=== PATIENT | female | born 1970 | race Caucasian/White ===

== ENCOUNTER 2016-11-06 19:18 | Emergency (ER) | payer OTHER ==
[~2016-11-06] VITALS: Ht 165.1 cm; Wt 133.8 kg
[~2016-11-06 19:18] MED LIST: CEPH-38 PO; COLD MEDICINE; METF-380; TYLENOL
--- NOTE | 2016-11-06 19:54 | ED Cough/URI ---
General Chief Complaint: Cough/Cold/Flu Symptoms Stated Complaint: POSSIBLY DEHYDRATED Nursing Triage Note: PATIENT REPORTS COUGH AND FEVER FOR 2 WEEKS, REPORTS WAS EVALUATED BY PCP THEN AND DIAGNOSED WITH THE FLU BUT DECLINED TAMIFLU. PATIENT REPORTS COUGH CONTINUES AND COUGHS SO HARD SHE VOMITS Source: patient, other Exam Limitations: no limitations History of Present Illness Time seen by provider: 19:48 Initial Comments Patient comes ER by private conveyance with chief complaint that her influenza from a week ago is still here and she is feeling congestion in the middle of her chest and has a productive cough. She was diagnosed in the clinic with influenza and offered Tamiflu but she did not get because of the cost. The patient is been using mrfs-yjz-[id number] Tylenol cough and cold medicine which has marginal relief benefit. She has no significant medical history other than some psoriasis. She is not on any other medications other than btky-zxr-kfnkrml when necessary's. She has had no fevers but she has gotten nauseated because of the coughing and having the vomit a couple times while at work however she was not able to vomit anything up. She says a couple times her cough sputum had some red blood tinge to it. She has no diarrhea or new rash. Allergies and Home Medications Allergies Coded Allergies: No Known Allergies (Unverified Allergy, Mild, 07/17/08) Home Medications Guaifenesin 100 Mg/5 Ml Liquid, 100 MG PO Q8H PRN for COUGH, #100 Ref 0 Prescribed by: VALENTIN JORDAN on 11/06/162002 Ondansetron 4 Mg Tab.rapdis, 4 MG PO Q4H PRN for NAUSEA/VOMITING-1ST LINE, #10 Ref 0 Prescribed by: VALENTIN JORDAN on 11/06/162002 Constitutional: chills, No diaphoresis, No fever, No malaise EENTM: No ear discharge, No ear pain Respiratory: see HPI, cough, phlegm, No short of breath, No wheezing Cardiovascular: No chest pain, No palpitations Gastrointestinal: No abdominal pain, No constipation, No diarrhea, No nausea Genitourinary: No discharge, No dysuria Musculoskeletal: No back pain, No joint pain Skin: No pruritus, No rash, other (chronic psoriatic plaques) Psychiatric/Neurological: Denies Headache, Denies Numbness, Denies Paresthesia Past Qghaegu-Agedqs-Stoqim Hx Patient Social History Alcohol Use: Denies Use Recreational Drug Use: No Smoking Status: Never a Smoker Recent Foreign Travel: No Contact w/Someone Who Travel: No Recent Infectious Disease Expo: No Physical Abuse: No Sexual Abuse: No Surgeries History of Surgeries: Yes (HERNIA) Surgeries: Cardiac, Tonsillectomy, Tubal Ligation Respiratory History of Respiratory Disorde: No Cardiovascular History of Cardiac Disorders: No Neurological History of Neurological Disord: No Genitourinary History of Genitourinary Disor: No Gastrointestinal History of Gastrointestinal Di: No Musculoskeletal History of Musculoskeletal Dis: No Endocrine History of Endocrine Disorders: No HEENT History of HEENT Disorders: No Cancer History of Cancer: No Psychosocial History of Psychiatric Problem: No Suicide Risk Score: 0 Integumentary History of Skin or Integumenta: No Blood Transfusions History of Blood Disorders: No Physical Exam Vital Signs Vital Sign - Last 12Hours 11/06/16 19:26 Temp 98.2 Pulse 102 Resp 18 Pulse Ox 95 O2 Delivery Room Air Capillary Refill : Less Than 3 Seconds General Appearance: WD/WN, no apparent distress Eyes: Bilateral Eye Normal Inspection, Bilateral Eye PERRL, Bilateral Eye EOMI HEENT: PERRL/EOMI, normal ENT inspection, TMs normal, pharynx normal, other ( moist mucous membranes) Neck: non-tender, full range of motion, supple, normal inspection Respiratory: chest non-tender, lungs clear, normal breath sounds, no respiratory distress Cardiovascular: normal peripheral pulses, regular rate, rhythm Gastrointestinal: normal bowel sounds, non tender, soft Extremities: non-tender, normal inspection, normal capillary refill Neurologic/Psychiatric: alert, oriented x 3 Skin: normal color, warm/dry Progress/Results/Core Measures Results/Orders My Orders Orders - VALENTIN JRODAN Chest Pa/Lat (2 View) (11/06/16 19:48) Rx-Ondansetron Po (Rx-Zofran Po) (11/06/16 20:04) Vital Signs/I&O Vital Sign - Last 12Hours 11/06/16 19:26 Temp 98.2 Pulse 102 Resp 18 B/P (MAP) Pulse Ox 95 O2 Delivery Room Air Diagnostic Imaging Diagonstic Imaging: Xray Plain Films/CT/US/NM/MRI: chest Comments No acute infiltrates. NAME: EMI PAYAN [facility] REC#: [id number] PHYSICIAN: VALENTIN JORDAN MD CC: ARIE MCGOVERN MD; VALENTIN JORDAN Page 1 of 1 RADIOLOGY REPORT VIA [facility], [facility]. [place], [place] CC: ARIE MCGOVERN MD; VALENTIN JORDAN Page 1 of 1 RADIOLOGY REPORT NAME: EMI PAYAN [facility] REC#: [id number] PT STATUS: REG ER : 1970 PHYSICIAN: VALENTIN JORDAN MD ADMIT DATE: 11/06/16/ER Signed Date of Exam: 11/06/16 CHEST PA/LAT (2 VIEW) INDICATION: 46-year-old female with flulike symptoms. COMPARISON: None. EXAMINATION: PA and lateral films of the chest were obtained. FINDINGS: The cardiac contour is normal. There is slight prominence of the central lung markings with some peribronchial cuffing. A few perihilar and bibasilar atelectatic infiltrates are seen but no significant consolidations. There is no effusion or pneumothorax. Soft tissues and bony thorax are normal. IMPRESSION: Central reactive airway changes such as bronchitis with superimposed perihilar and bibasilar atelectatic infiltrates but no significant consolidations. Dictated by: Dictated on workstation # [id number] Dict: 11/06/162005 Trans: 11/06/162013 Interpreted by: ARIE MCGOVERN MD Electronically signed by: ARIE MCGOVERN MD 11/06/162013 Reviewed: Reviewed by Ny Departure Impression Impression: Primary Impression: Influenza Disposition: 01 HOME, SELF-CARE Condition: Stable Departure-Patient Inst. Referrals: [facility] (PCP/Family) Primary Care Physician Patient Instructions: Flu, Adult (DC) Add. Discharge Instructions: Drink copious amounts of fluids and use Zofran under the tongue one tablet every 4 hours as needed for nausea or vomiting. Use the cough medicine as needed every 8 hours to control your cough especially before going to bed. All discharge instructions reviewed with patient and/or family. Voiced understanding. Scripts Ondansetron (Zofran Odt) 4 Mg Tab.rapdis 4 MG PO Q4H Y for NAUSEA/VOMITING-1ST LINE, #10 TAB 0 Refills Prov: VALENTIN JORDAN 11/06/16 Guaifenesin (Guaifenesin) 100 Mg/5 Ml Liquid 100 MG PO Q8H Y for COUGH, #100 ML 0 Refills Prov: VALENTIN JORDAN 11/06/16 Work/School Note: Work Release Form Date Seen in the Emergency Department: Nov 06, 2016 Return to Work: Nov 09, 2016 Restrictions: No Restrictions Copy Copies To 1: FRANCESCA ARREGUIN TITUS J Nov 06, 2016 19:54
[2016-11-06] MEDS ORDERED: GUAI100L13 PO (20:03)
[2016-11-06] MEDS ORDERED: ONDA4TAB8 PO (20:03)
[2016-11-06] MEDS ORDERED: RX-ONDANSETRON 4 MG ODT (ZOFRAN) PPK #4 PO STA (20:04)
--- NOTE | 2016-11-06 20:11 | Diagnostic Imaging Report ---
INDICATION: 46-year-old female with flulike symptoms. COMPARISON: None. EXAMINATION: PA and lateral films of the chest were obtained. FINDINGS: The cardiac contour is normal. There is slight prominence of the central lung markings with some peribronchial cuffing. A few perihilar and bibasilar atelectatic infiltrates are seen but no significant consolidations. There is no effusion or pneumothorax. Soft tissues and bony thorax are normal. IMPRESSION: Central reactive airway changes such as bronchitis with superimposed perihilar and bibasilar atelectatic infiltrates but no significant consolidations. Dictated by: Dictated on workstation # [id number]
[2016-11-06 20:34] VITALS: BP 155/98
== END 2016-11-06 20:33 | disposition home or self-care (01) ==
LOC: EDUNIT# 19:18 → ER 19:20
DX: J11.1 Influenza due to unidentified influenza virus with other respiratory manifestations (principal); Z98.51 Tubal ligation status; Z90.89 Acquired absence of other organs
CPT/HCPCS: 71020; 99283

== ENCOUNTER 2016-11-15 19:20 | Emergency (ER) | payer SELFPAY ==
[~2016-11-15] VITALS: Ht 165.1 cm; Wt 136.1 kg
[~2016-11-15 19:20] MED LIST changes: +GUAI100L13 PO; +ONDA4TAB8 PO
--- OUTSIDE RECORDS SUMMARY | 2016-11-15 19:27 | XMS REPORT | Continuity of Care Document ---
Author Author Formerly [facility], [facility] Address Unknown Phone Unavailable Allergies Active Description Code Type Severity Reaction Onset Reported/Identified Relationship to Patient Clinical Status Yes NKANo Known Allergies NKA Miscellaneous Allergy Mild N/A 07/17/2008 Medications Problems Date Dx Coded Attending Type Code Diagnosis Diagnosed By 08/29/2007 NEFTALY ISSA MD 110.5 TINEA CORPORIS 08/29/2007 110.5 TINEA CORPORIS 08/29/2007 110.5 TINEA CORPORIS 08/29/2007 110.5 TINEA CORPORIS 08/29/2007 110.5 TINEA CORPORIS 08/29/2007 110.5 TINEA CORPORIS 08/29/2007 110.5 TINEA CORPORIS 08/29/2007 ARREGUIN DO FRANCESCA K 110.5 TINEA CORPORIS 08/29/2007 ARREGUIN DO, FRANCESCA K 110.5 TINEA CORPORIS 08/29/2007 ARREGUIN DO, FRANCESCA K 110.5 TINEA CORPORIS 08/29/2007 ARREGUIN DO, FRANCESCA K 110.5 TINEA CORPORIS 08/29/2007 KIN ATKINS APRN 110.5 TINEA CORPORIS 08/29/2007 ARREGUIN DO, FRANCESCA K 110.5 TINEA CORPORIS 08/29/2007 ARREGUIN DO FRANCESCA K 110.5 TINEA CORPORIS 08/29/2007 ARREGUIN DO FRANCESCA K 110.5 TINEA CORPORIS 01/30/2008 NEFTLAY ISSA MD 079.99 VIRAL SYNDROME 01/30/2008 NEFTALY ISSA MD 250.02 DIABETES MELLITUS POORLY CONTROLLED 01/30/2008 NEFTALY ISSA MD 787.01 NAUSEA WITH VOMITING 01/30/2008 079.99 VIRAL SYNDROME 01/30/2008 250.02 DIABETES MELLITUS POORLY CONTROLLED 01/30/2008 787.01 NAUSEA WITH VOMITING 01/30/2008 079.99 VIRAL SYNDROME 01/30/2008 250.02 DIABETES MELLITUS POORLY CONTROLLED 01/30/2008 787.01 NAUSEA WITH VOMITING 01/30/2008 079.99 VIRAL SYNDROME 01/30/2008 250.02 DIABETES MELLITUS POORLY CONTROLLED 01/30/2008 787.01 NAUSEA WITH VOMITING 01/30/2008 079.99 VIRAL SYNDROME 01/30/2008 250.02 DIABETES MELLITUS POORLY CONTROLLED 01/30/2008 787.01 NAUSEA WITH VOMITING 01/30/2008 079.99 VIRAL SYNDROME 01/30/2008 250.02 DIABETES MELLITUS POORLY CONTROLLED 01/30/2008 787.01 NAUSEA WITH VOMITING 01/30/2008 079.99 VIRAL SYNDROME 01/30/2008 250.02 DIABETES MELLITUS POORLY CONTROLLED 01/30/2008 787.01 NAUSEA WITH VOMITING 01/30/2008 ARREGUIN DO, FRANCESCA K 079.99 VIRAL SYNDROME 01/30/2008 ARREGUIN DO, FRANCESCA K 250.02 DIABETES MELLITUS POORLY CONTROLLED 01/30/2008 ARREGUIN DO, FRANCESCA K 787.01 NAUSEA WITH VOMITING 01/30/2008 ARREGUIN DO, FRANCESCA K 079.99 VIRAL SYNDROME 01/30/2008 ARREGUIN DO, FARNCESCA K 250.02 DIABETES MELLITUS POORLY CONTROLLED 01/30/2008 ARREGUIN DO FRANCESCA K 787.01 NAUSEA WITH VOMITING 01/30/2008 ARREGUIN DO, FRANCESCA K 079.99 VIRAL SYNDROME 01/30/2008 ARREGUIN DO, FRANCESCA K 250.02 DIABETES MELLITUS POORLY CONTROLLED 01/30/2008 ARREGUIN DO, FRANCESCA K 787.01 NAUSEA WITH VOMITING 01/30/2008 ARREGUIN DO, FRANCESCA K 079.99 VIRAL SYNDROME 01/30/2008 ARREGUIN DO, FRANCESCA K 250.02 DIABETES MELLITUS POORLY CONTROLLED 01/30/2008 ARREGUIN DO FRANCESCA K 787.01 NAUSEA WITH VOMITING 01/30/2008 KIN ATKINS APRN E 079.99 VIRAL SYNDROME 01/30/2008 IVAN ATKINS APRNSIE E 250.02 DIABETES MELLITUS POORLY CONTROLLED 01/30/2008 VICKYLNOAH KAUR KIN E 787.01 NAUSEA WITH VOMITING 01/30/2008 ARREGUIN DO FRANCESCA K 079.99 VIRAL SYNDROME 01/30/2008 ARREGUIN DO, FRANCESCA K 250.02 DIABETES MELLITUS POORLY CONTROLLED 01/30/2008 ARREGUIN DO, FRANCESCA K 787.01 NAUSEA WITH VOMITING 01/30/2008 ARREGUIN DO FRANCESCA K 079.99 VIRAL SYNDROME 01/30/2008 ARREGUIN DO FRANCESCA K 250.02 DIABETES MELLITUS POORLY CONTROLLED 01/30/2008 ARREGUIN DO, FRANCESCA K 787.01 NAUSEA WITH VOMITING 01/30/2008 KALLIE GONZALEZ FRANCESCA K 079.99 VIRAL SYNDROME 01/30/2008 KALLIE GONZALEZ FRANCESCA K 250.02 DIABETES MELLITUS POORLY CONTROLLED 01/30/2008 KALLIE GONZALEZ FRANCESCA K 787.01 NAUSEA WITH VOMITING 10/21/2008 NEFTALY ISSA MD 250.00 DIABETES MELLITUS 10/21/2008 NEFTALY ISSA MD 278.00 OBESITY UNSPECIFIED 10/21/2008 NEFTALY ISSA MD 300.4 DYSTHYMIC DISORDER 10/21/2008 NEFTALY ISSA MD 780.52 insomnia 10/21/2008 250.00 DIABETES MELLITUS 10/21/2008 278.00 OBESITY UNSPECIFIED 10/21/2008 300.4 DYSTHYMIC DISORDER 10/21/2008 780.52 insomnia 10/21/2008 250.00 DIABETES MELLITUS 10/21/2008 278.00 OBESITY UNSPECIFIED 10/21/2008 300.4 DYSTHYMIC DISORDER 10/21/2008 780.52 insomnia 10/21/2008 250.00 DIABETES MELLITUS 10/21/2008 278.00 OBESITY UNSPECIFIED 10/21/2008 300.4 DYSTHYMIC DISORDER 10/21/2008 780.52 insomnia 10/21/2008 250.00 DIABETES MELLITUS 10/21/2008 278.00 OBESITY UNSPECIFIED 10/21/2008 300.4 DYSTHYMIC DISORDER 10/21/2008 780.52 insomnia 10/21/2008 250.00 DIABETES MELLITUS 10/21/2008 278.00 OBESITY UNSPECIFIED 10/21/2008 300.4 DYSTHYMIC DISORDER 10/21/2008 780.52 insomnia 10/21/2008 250.00 DIABETES MELLITUS 10/21/2008 278.00 OBESITY UNSPECIFIED 10/21/2008 300.4 DYSTHYMIC DISORDER 10/21/2008 780.52 insomnia 10/21/2008 ARREGUIN DO, FRANCESCA K 250.00 DIABETES MELLITUS 10/21/2008 ARREGUIN DO FRANCESCA K 278.00 OBESITY UNSPECIFIED 10/21/2008 ARREGUIN DO FRANCESCA K 300.4 DYSTHYMIC DISORDER 10/21/2008 ARREGUIN DO, FRANCESCA K 780.52 insomnia 10/21/2008 KALLIE GONZALEZ FRANCESCA K 250.00 DIABETES MELLITUS 10/21/2008 AKLLIE GONZALEZ FRANCESCA K 278.00 OBESITY UNSPECIFIED 10/21/2008 ARREGUIN DO FRANCESCA K 300.4 DYSTHYMIC DISORDER 10/21/2008 ARREGUIN DO, FRANCESCA K 780.52 insomnia 10/21/2008 ARREGUIN DO, FRANCESCA K 250.00 DIABETES MELLITUS 10/21/2008 ARREGUIN DO, FRANCESCA K 278.00 OBESITY UNSPECIFIED 10/21/2008 ARREGUIN DO, FRANCESCA K 300.4 DYSTHYMIC DISORDER 10/21/2008 ARREGUIN DO, FRANCESCA K 780.52 insomnia 10/21/2008 ARREGUIN DO, FRANCESCA K 250.00 DIABETES MELLITUS 10/21/2008 ARREGUIN DO, FRANCESCA K 278.00 OBESITY UNSPECIFIED 10/21/2008 ARREGUIN DO, FRANCESCA K 300.4 DYSTHYMIC DISORDER 10/21/2008 ARREGUIN DO, FRANCESCA K 780.52 insomnia 10/21/2008 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 KIN E 250.00 DIABETES MELLITUS 10/21/2008 [facility] KIN E 278.00 OBESITY UNSPECIFIED 10/21/2008 [facility] KIN E 300.4 DYSTHYMIC DISORDER 10/21/2008 VICKYNOAH [employer]IE[employer], KIN E 780.52 insomnia 10/21/2008 ARREGUIN DO, FRANCESCA K 250.00 DIABETES MELLITUS 10/21/2008 ARREGUIN DO, FRANCESCA K 278.00 OBESITY UNSPECIFIED 10/21/2008 ARREGUIN DO, FRANCESCA K 300.4 DYSTHYMIC DISORDER 10/21/2008 ARREGUIN DO, FRANCESCA K 780.52 insomnia 10/21/2008 ARREGUIN DO, FRANCESCA K 250.00 DIABETES MELLITUS 10/21/2008 ARREGUIN DO, FRANCESCA K 278.00 OBESITY UNSPECIFIED 10/21/2008 ARREGUIN DO, FRANCESCA K 300.4 DYSTHYMIC DISORDER 10/21/2008 ARREGUIN DO, FRANCESCA K 780.52 insomnia 10/21/2008 ARREGUIN DO, FRANCESCA K 250.00 DIABETES MELLITUS 10/21/2008 ARREGUIN DO, FRANCESCA K 278.00 OBESITY UNSPECIFIED 10/21/2008 ARREGUIN DO, FRANCESCA K 300.4 DYSTHYMIC DISORDER 10/21/2008 ARREGUIN DO, FRANCESCA K 780.52 insomnia 11/04/2008 MAEGAN PIMENTEL, NEFTALY V72.31 RECOVERY COORDINATOR EXAM, ROUTINE 11/04/2008 V72.31 RECOVERY COORDINATOR EXAM, ROUTINE 11/04/2008 V72.31 RECOVERY COORDINATOR EXAM, ROUTINE 11/04/2008 V72.31 RECOVERY COORDINATOR EXAM, ROUTINE 11/04/2008 V72.31 RECOVERY COORDINATOR EXAM, ROUTINE 11/04/2008 V72.31 RECOVERY COORDINATOR EXAM, ROUTINE 11/04/2008 V72.31 RECOVERY COORDINATOR EXAM, ROUTINE 11/04/2008 ARREGUIN DO, FRANCESCA K V72.31 RECOVERY COORDINATOR EXAM, ROUTINE 11/04/2008 ARREGUIN DO, FRANCESCA K V72.31 RECOVERY COORDINATOR EXAM, ROUTINE 11/04/2008 ARREGUIN DO, FRANCESCA K V72.31 RECOVERY COORDINATOR EXAM, ROUTINE 11/04/2008 ARREGUIN DO FRANCESCA K V72.31 RECOVERY COORDINATOR EXAM, ROUTINE 11/04/2008 KIN ATKINS APRN V72.31 RECOVERY COORDINATOR EXAM, ROUTINE 11/04/2008 ARREGUIN DO, FRANCESCA K V72.31 RECOVERY COORDINATOR EXAM, ROUTINE 11/04/2008 ARREGUIN DO, FRANCESCA K V72.31 RECOVERY COORDINATOR EXAM, ROUTINE 11/04/2008 ARREGUIN DO, FRANCESCA K V72.31 RECOVERY COORDINATOR EXAM, ROUTINE 09/09/2009 NEFTALY ISSA MD 272.4 HYPERLIPIDEMIA UNSPECIFIED 09/09/2009 NEFTALY ISSA MD 382.00 OTITIS MEDIA ACUTE WITHOUT SPONTANEOUS RUPTURE EARDRUM 09/09/2009 NEFTALY ISSA MD 388.70 EAR ACHE 09/09/2009 272.4 HYPERLIPIDEMIA UNSPECIFIED 09/09/2009 382.00 OTITIS MEDIA ACUTE WITHOUT SPONTANEOUS RUPTURE EARDRUM 09/09/2009 388.70 EAR ACHE 09/09/2009 272.4 HYPERLIPIDEMIA UNSPECIFIED 09/09/2009 382.00 OTITIS MEDIA ACUTE WITHOUT SPONTANEOUS RUPTURE EARDRUM 09/09/2009 388.70 EAR ACHE 09/09/2009 272.4 HYPERLIPIDEMIA UNSPECIFIED 09/09/2009 382.00 OTITIS MEDIA ACUTE WITHOUT SPONTANEOUS RUPTURE EARDRUM 09/09/2009 388.70 EAR ACHE 09/09/2009 272.4 HYPERLIPIDEMIA UNSPECIFIED 09/09/2009 382.00 OTITIS MEDIA ACUTE WITHOUT SPONTANEOUS RUPTURE EARDRUM 09/09/2009 388.70 EAR ACHE 09/09/2009 272.4 HYPERLIPIDEMIA UNSPECIFIED 09/09/2009 382.00 OTITIS MEDIA ACUTE WITHOUT SPONTANEOUS RUPTURE EARDRUM 09/09/2009 388.70 EAR ACHE 09/09/2009 272.4 HYPERLIPIDEMIA UNSPECIFIED 09/09/2009 382.00 OTITIS MEDIA ACUTE WITHOUT SPONTANEOUS RUPTURE EARDRUM 09/09/2009 388.70 EAR ACHE 09/09/2009 FRANCESCA ARREGUIN DO K 272.4 HYPERLIPIDEMIA UNSPECIFIED 09/09/2009 FRANCESCA ARREGUIN DO 382.00 OTITIS MEDIA ACUTE WITHOUT SPONTANEOUS RUPTURE EARDRUM 09/09/2009 ARREGUIN DO, FRANCESCA K 388.70 EAR ACHE 09/09/2009 ARREGUIN DO, FRANCESCA K 272.4 HYPERLIPIDEMIA UNSPECIFIED 09/09/2009 ARREGUIN DO, FRANCESCA K 382.00 OTITIS MEDIA ACUTE WITHOUT SPONTANEOUS RUPTURE EARDRUM 09/09/2009 ARREGUIN DO, FRANCESCA K 388.70 EAR ACHE 09/09/2009 ARREGUIN DO, FRANCESCA K 272.4 HYPERLIPIDEMIA UNSPECIFIED 09/09/2009 ARREGUIN DO, FRANCESCA K 382.00 OTITIS MEDIA ACUTE WITHOUT SPONTANEOUS RUPTURE EARDRUM 09/09/2009 ARREGUIN DO, FRANCESCA K 388.70 EAR ACHE 09/09/2009 ARREGUIN DO, FRANCESCA K 272.4 HYPERLIPIDEMIA UNSPECIFIED 09/09/2009 ARREGUIN DO, FRANCESCA K 382.00 OTITIS MEDIA ACUTE WITHOUT SPONTANEOUS RUPTURE EARDRUM 09/09/2009 ARREGUIN DO, FRANCESCA K 388.70 EAR ACHE 09/09/2009 [employer] KIN E 272.4 HYPERLIPIDEMIA UNSPECIFIED 09/09/2009 [facility] KIN E 382.00 OTITIS MEDIA ACUTE WITHOUT SPONTANEOUS RUPTURE EARDRUM 09/09/2009 [employer] KIN E 388.70 EAR ACHE 09/09/2009 ARREGUIN DO, FRANCESCA K 272.4 HYPERLIPIDEMIA UNSPECIFIED 09/09/2009 ARREGUIN DO, FRANCESCA K 382.00 OTITIS MEDIA ACUTE WITHOUT SPONTANEOUS RUPTURE EARDRUM 09/09/2009 ARREGUIN DO, FRANCESCA K 388.70 EAR ACHE 09/09/2009 ARREGUIN DO, FRANCESCA K 272.4 HYPERLIPIDEMIA UNSPECIFIED 09/09/2009 ARREGUIN DO, FRANCESCA K 382.00 OTITIS MEDIA ACUTE WITHOUT SPONTANEOUS RUPTURE EARDRUM 09/09/2009 ARREGUIN DO, FRANCESCA K 388.70 EAR ACHE 09/09/2009 ARREGUIN DO, FRANCESCA K 272.4 HYPERLIPIDEMIA UNSPECIFIED 09/09/2009 ARREGUIN DO, FRANCESCA K 382.00 OTITIS MEDIA ACUTE WITHOUT SPONTANEOUS RUPTURE EARDRUM 09/09/2009 ARREGUIN DO, FRANCESCA K 388.70 EAR ACHE 05/04/2010 NEFTALY ISSA MD 599.0 URINARY TRACT INFECTION SITE NOT SPECIFIED 05/04/2010 NEFTALY ISSA MD 780.60 FEVER UNSPECIFIED 05/04/2010 NEFTALY ISSA MD 787.02 NAUSEA ALONE 05/04/2010 NEFTALY ISSA MD 787.91 DIARRHEA 05/04/2010 ISSA MD, NEFTALY 789.00 ABDOMINAL PAIN UNSPECIFIED SITE 05/04/2010 599.0 URINARY TRACT INFECTION SITE NOT SPECIFIED 05/04/2010 780.60 FEVER UNSPECIFIED 05/04/2010 787.02 NAUSEA ALONE 05/04/2010 787.91 DIARRHEA 05/04/2010 789.00 ABDOMINAL PAIN UNSPECIFIED SITE 05/04/2010 599.0 URINARY TRACT INFECTION SITE NOT SPECIFIED 05/04/2010 780.60 FEVER UNSPECIFIED 05/04/2010 787.02 NAUSEA ALONE 05/04/2010 787.91 DIARRHEA 05/04/2010 789.00 ABDOMINAL PAIN UNSPECIFIED SITE 05/04/2010 599.0 URINARY TRACT INFECTION SITE NOT SPECIFIED 05/04/2010 780.60 FEVER UNSPECIFIED 05/04/2010 787.02 NAUSEA ALONE 05/04/2010 787.91 DIARRHEA 05/04/2010 789.00 ABDOMINAL PAIN UNSPECIFIED SITE 05/04/2010 599.0 URINARY TRACT INFECTION SITE NOT SPECIFIED 05/04/2010 780.60 FEVER UNSPECIFIED 05/04/2010 787.02 NAUSEA ALONE 05/04/2010 787.91 DIARRHEA 05/04/2010 789.00 ABDOMINAL PAIN UNSPECIFIED SITE 05/04/2010 599.0 URINARY TRACT INFECTION SITE NOT SPECIFIED 05/04/2010 780.60 FEVER UNSPECIFIED 05/04/2010 787.02 NAUSEA ALONE 05/04/2010 787.91 DIARRHEA 05/04/2010 789.00 ABDOMINAL PAIN UNSPECIFIED SITE 05/04/2010 599.0 URINARY TRACT INFECTION SITE NOT SPECIFIED 05/04/2010 780.60 FEVER UNSPECIFIED 05/04/2010 787.02 NAUSEA ALONE 05/04/2010 787.91 DIARRHEA 05/04/2010 789.00 ABDOMINAL PAIN UNSPECIFIED SITE 05/04/2010 ARREGUIN DO, FRANCESCA K 599.0 URINARY TRACT INFECTION SITE NOT SPECIFIED 05/04/2010 ARREGUIN DO, FRANCESCA K 780.60 FEVER UNSPECIFIED 05/04/2010 ARREGUIN DO, FRANCESCA K 787.02 NAUSEA ALONE 05/04/2010 ARREGUIN DO, FRANCESCA K 787.91 DIARRHEA 05/04/2010 ARREGUIN DO, FRANCESCA K 789.00 ABDOMINAL PAIN UNSPECIFIED SITE 05/04/2010 ARREGUIN DO, FRANCESCA K 599.0 URINARY TRACT INFECTION SITE NOT SPECIFIED 05/04/2010 ARREGUIN DO, FRANCESCA K 780.60 FEVER UNSPECIFIED 05/04/2010 ARREGUIN DO, FRANCESCA K 787.02 NAUSEA ALONE 05/04/2010 ARREGUIN DO, FRANCESCA K 787.91 DIARRHEA 05/04/2010 ARREGUIN DO, FRANCESCA K 789.00 ABDOMINAL PAIN UNSPECIFIED SITE 05/04/2010 ARREGUIN DO, FRANCESCA K 599.0 URINARY TRACT INFECTION SITE NOT SPECIFIED 05/04/2010 ARREGUIN DO, FRANCESCA K 780.60 FEVER UNSPECIFIED 05/04/2010 ARREGUIN DO, FRANCESCA K 787.02 NAUSEA ALONE 05/04/2010 ARREGUIN DO, FRANCESCA K 787.91 DIARRHEA 05/04/2010 ARREGUIN DO, FRANCESCA K 789.00 ABDOMINAL PAIN UNSPECIFIED SITE 05/04/2010 ARREGUIN DO, FRANCESCA K 599.0 URINARY TRACT INFECTION SITE NOT SPECIFIED 05/04/2010 ARREGUIN DO, FRANCESCA K 780.60 FEVER UNSPECIFIED 05/04/2010 ARREGUIN DO, FRANCESCA K 787.02 NAUSEA ALONE 05/04/2010 ARREGUIN DO, FRANCESCA K 787.91 DIARRHEA 05/04/2010 ARREGUIN DO, FRANCESCA K 789.00 ABDOMINAL PAIN UNSPECIFIED SITE 05/04/2010 VICKYLWIG [employer] KIN E 599.0 URINARY TRACT INFECTION SITE NOT SPECIFIED 05/04/2010 WILBERT [employer] KIN E 780.60 FEVER UNSPECIFIED 05/04/2010 VICKYLNOAH [employer] KIN E 787.02 NAUSEA ALONE 05/04/2010 VICKYLNOAH [employer] KIN E 787.91 DIARRHEA 05/04/2010 VICKYLNOAH [employer] KIN E 789.00 ABDOMINAL PAIN UNSPECIFIED SITE 05/04/2010 ARREGUIN DO, FRANCESCA K 599.0 URINARY TRACT INFECTION SITE NOT SPECIFIED 05/04/2010 ARREGUIN DO, FRANCESCA K 780.60 FEVER UNSPECIFIED 05/04/2010 ARREGUIN DO, FRANCESCA K 787.02 NAUSEA ALONE 05/04/2010 ARREGUIN DO, FRANCESCA K 787.91 DIARRHEA 05/04/2010 ARREGUIN DO, FRANCESCA K 789.00 ABDOMINAL PAIN UNSPECIFIED SITE 05/04/2010 ARREGUIN DO, FRANCESCA K 599.0 URINARY TRACT INFECTION SITE NOT SPECIFIED 05/04/2010 ARREGUIN DO, FRANCESCA K 780.60 FEVER UNSPECIFIED 05/04/2010 ARREGUIN DO, FRANCESCA K 787.02 NAUSEA ALONE 05/04/2010 ARREGUIN DO, FRANCESCA K 787.91 DIARRHEA 05/04/2010 ARREGUIN DO, FRANCESCA K 789.00 ABDOMINAL PAIN UNSPECIFIED SITE 05/04/2010 ARREGUIN DO, FRANCESCA K 599.0 URINARY TRACT INFECTION SITE NOT SPECIFIED 05/04/2010 ARREGUIN DO, FRANCESCA K 780.60 FEVER UNSPECIFIED 05/04/2010 ARREGUIN DO, FRANCESCA K 787.02 NAUSEA ALONE 05/04/2010 ARREGUIN DO, FRANCESCA K 787.91 DIARRHEA 05/04/2010 ARREGUIN DO, FRANCESCA K 789.00 ABDOMINAL PAIN UNSPECIFIED SITE 06/09/2010 NEFTALY ISSA MD 296.89 BIPOLAR II DISORDER 06/09/2010 NEFTALY ISSA MD 300.00 AN ANXIETY UNSPEC 06/09/2010 296.89 BIPOLAR II DISORDER 06/09/2010 300.00 AN ANXIETY UNSPEC 06/09/2010 296.89 BIPOLAR II DISORDER 06/09/2010 300.00 AN ANXIETY UNSPEC 06/09/2010 296.89 BIPOLAR II DISORDER 06/09/2010 300.00 AN ANXIETY UNSPEC 06/09/2010 296.89 BIPOLAR II DISORDER 06/09/2010 300.00 AN ANXIETY UNSPEC 06/09/2010 296.89 BIPOLAR II DISORDER 06/09/2010 300.00 AN ANXIETY UNSPEC 06/09/2010 296.89 BIPOLAR II DISORDER 06/09/2010 300.00 AN ANXIETY UNSPEC 06/09/2010 ARREGUIN DO, FRANCESCA K 296.89 BIPOLAR II DISORDER 06/09/2010 ARREGUIN DO, FRANCESCA K 300.00 AN ANXIETY UNSPEC 06/09/2010 ARREGUIN DO, FRANCESCA K 296.89 BIPOLAR II DISORDER 06/09/2010 ARREGUIN DO, FRANCESCA K 300.00 AN ANXIETY UNSPEC 06/09/2010 ARREGUIN DO, FRANCESCA K 296.89 BIPOLAR II DISORDER 06/09/2010 ARREGUIN DO, FRANCESCA K 300.00 AN ANXIETY UNSPEC 06/09/2010 ARREGUIN DO, FRANCESCA K 296.89 BIPOLAR II DISORDER 06/09/2010 ARREGUIN DO, FRANCESCA K 300.00 AN ANXIETY UNSPEC 06/09/2010 KIN ATKINS APRN 296.89 BIPOLAR II DISORDER 06/09/2010 KIN ATKINS APRN E 300.00 AN ANXIETY UNSPEC 06/09/2010 ARREGUIN DO, FRANCESCA K 296.89 BIPOLAR II DISORDER 06/09/2010 ARREGUIN DO, FRANCESCA K 300.00 AN ANXIETY UNSPEC 06/09/2010 ARREGUIN DO, FRANCESCA K 296.89 BIPOLAR II DISORDER 06/09/2010 ARREGUIN DO, FRANCESCA K 300.00 AN ANXIETY UNSPEC 06/09/2010 ARREGUIN DO, FRANCESCA K 296.89 BIPOLAR II DISORDER 06/09/2010 ARREGUIN DO, FRANCESCA K 300.00 AN ANXIETY UNSPEC 10/30/2010 NEFTALY ISSA MD 466.0 BRONCHITIS, ACUTE 10/30/2010 466.0 ACUTE BRONCHITIS 10/30/2010 466.0 ACUTE BRONCHITIS 10/30/2010 466.0 ACUTE BRONCHITIS 10/30/2010 466.0 ACUTE BRONCHITIS 10/30/2010 466.0 ACUTE BRONCHITIS 10/30/2010 466.0 ACUTE BRONCHITIS 10/30/2010 ARREGUIN DO, FRANCESCA K 466.0 ACUTE BRONCHITIS 10/30/2010 ARREGUIN DO, FRANCESCA K 466.0 ACUTE BRONCHITIS 10/30/2010 ARREGUIN DO, FRANCESCA K 466.0 ACUTE BRONCHITIS 10/30/2010 ARREGUIN DO, FRANCESCA K 466.0 ACUTE BRONCHITIS 10/30/2010 KIN ATKINS APRN 466.0 ACUTE BRONCHITIS 10/30/2010 ARREGUIN DO, FRANCESCA K 466.0 ACUTE BRONCHITIS 10/30/2010 ARREGUIN DO, FRANCESCA K 466.0 ACUTE BRONCHITIS 10/30/2010 ARREGUIN DO, FRANCESCA K 466.0 ACUTE BRONCHITIS 05/03/2011 NEFTALY ISSA MD 575.10 CHOLECYSTITIS UNSPECIFIED 05/03/2011 575.10 CHOLECYSTITIS UNSPECIFIED 05/03/2011 575.10 CHOLECYSTITIS UNSPECIFIED 05/03/2011 575.10 CHOLECYSTITIS UNSPECIFIED 05/03/2011 575.10 CHOLECYSTITIS UNSPECIFIED 05/03/2011 575.10 CHOLECYSTITIS UNSPECIFIED 05/03/2011 575.10 CHOLECYSTITIS UNSPECIFIED 05/03/2011 ARREGUIN DO, FRANCESCA K 575.10 CHOLECYSTITIS UNSPECIFIED 05/03/2011 ARREGUIN DO, FRANCESCA K 575.10 CHOLECYSTITIS UNSPECIFIED 05/03/2011 ARREGUIN DO, FRANCESCA K 575.10 CHOLECYSTITIS UNSPECIFIED 05/03/2011 ARREGUIN DO, FRANCESCA K 575.10 CHOLECYSTITIS UNSPECIFIED 05/03/2011 KIN ATKINS APRN 575.10 CHOLECYSTITIS UNSPECIFIED 05/03/2011 ARREGUIN DO, FRANCESCA K 575.10 CHOLECYSTITIS UNSPECIFIED 05/03/2011 ARREGUIN DO, FRANCESCA K 575.10 CHOLECYSTITIS UNSPECIFIED 05/03/2011 ARREGUIN DO, FRANCESCA K 575.10 CHOLECYSTITIS UNSPECIFIED 06/11/2011 NEFTALY ISSA MD 380.4 IMPACTED CERUMEN 06/11/2011 NEFTALY ISSA MD 564.00 UNSPECIFIED CONSTIPATION 06/11/2011 380.4 IMPACTED CERUMEN 06/11/2011 564.00 UNSPECIFIED CONSTIPATION 06/11/2011 380.4 IMPACTED CERUMEN 06/11/2011 564.00 UNSPECIFIED CONSTIPATION 06/11/2011 380.4 IMPACTED CERUMEN 06/11/2011 564.00 UNSPECIFIED CONSTIPATION 06/11/2011 380.4 IMPACTED CERUMEN 06/11/2011 564.00 UNSPECIFIED CONSTIPATION 06/11/2011 380.4 IMPACTED CERUMEN 06/11/2011 564.00 UNSPECIFIED CONSTIPATION 06/11/2011 380.4 IMPACTED CERUMEN 06/11/2011 564.00 UNSPECIFIED CONSTIPATION 06/11/2011 ARREGUIN DO, FRANCESCA K 380.4 IMPACTED CERUMEN 06/11/2011 ARREGUIN DO, FRANCESCA K 564.00 UNSPECIFIED CONSTIPATION 06/11/2011 ARREGUIN DO, FRANCESCA K 380.4 IMPACTED CERUMEN 06/11/2011 ARREGUIN DO, FRANCESCA K 564.00 UNSPECIFIED CONSTIPATION 06/11/2011 ARREGUIN DO, FRANCESCA K 380.4 IMPACTED CERUMEN 06/11/2011 ARREGUIN DO, FRANCESCA K 564.00 UNSPECIFIED CONSTIPATION 06/11/2011 ARREGUIN DO, FRANCESCA K 380.4 IMPACTED CERUMEN 06/11/2011 ARREGUIN DO, FRANCESCA K 564.00 UNSPECIFIED CONSTIPATION 06/11/2011 [employer], KIN E 380.4 IMPACTED CERUMEN 06/11/2011 [employer], KIN E 564.00 UNSPECIFIED CONSTIPATION 06/11/2011 ARREGUIN DO, FRANCESCA K 380.4 IMPACTED CERUMEN 06/11/2011 ARREGUIN DO, FRANCESCA K 564.00 UNSPECIFIED CONSTIPATION 06/11/2011 ARREGUIN DO, FRANCESCA K 380.4 IMPACTED CERUMEN 06/11/2011 ARREGUIN DO, FRANCESCA K 564.00 UNSPECIFIED CONSTIPATION 06/11/2011 ARREGUIN DO, FRANCESCA K 380.4 IMPACTED CERUMEN 06/11/2011 ARREGUIN DO, FRANCESCA K 564.00 UNSPECIFIED CONSTIPATION 06/30/2011 Ot 553.8 HERNIA NEC 06/30/2011 Ot 789.00 ABDOMINAL PAIN, UNSPECIFIED SITE 12/31/2011 MAEGAN PIMENTEL, NEFTALY 278.01 OBESITY MORBID 12/31/2011 278.01 OBESITY MORBID 12/31/2011 278.01 OBESITY MORBID 12/31/2011 278.01 OBESITY MORBID 12/31/2011 278.01 OBESITY MORBID 12/31/2011 278.01 OBESITY MORBID 12/31/2011 278.01 OBESITY MORBID 12/31/2011 FRANCESCA ARREGUIN DO K 278.01 OBESITY MORBID 12/31/2011 IVAN ARREGUIN DOA K 278.01 OBESITY MORBID 12/31/2011 IVAN ARREGUIN DOA K 278.01 OBESITY MORBID 12/31/2011 IVAN ARREGUIN DOA K 278.01 OBESITY MORBID 12/31/2011 KIN ATKINS APRN 278.01 OBESITY MORBID 12/31/2011 IVAN ARREGUIN DOA K 278.01 OBESITY MORBID 12/31/2011 IVAN ARREGUIN DOA K 278.01 OBESITY MORBID 12/31/2011 IVAN ARREGUIN DOA K 278.01 OBESITY MORBID 04/04/2012 487.1 INFLUENZA 04/04/2012 487.1 INFLUENZA B 04/04/2012 487.1 INFLUENZA B 04/04/2012 487.1 INFLUENZA B 04/04/2012 487.1 INFLUENZA B 04/04/2012 487.1 INFLUENZA B 04/04/2012 FRANCESCA ARREGUIN DO K 487.1 INFLUENZA B 04/04/2012 FRANCESCA ARREGUIN DO K 487.1 INFLUENZA B 04/04/2012 FRANCESCA ARREGUIN DO K 487.1 INFLUENZA B 04/04/2012 FRANCESCA ARREGUIN DO K 487.1 INFLUENZA B 04/04/2012 KIN ATKINS APRN 487.1 INFLUENZA B 04/04/2012 IVAN ARREGUIN DOA K 487.1 INFLUENZA B 04/04/2012 IVAN ARREGUIN DOA K 487.1 INFLUENZA B 04/04/2012 FRANCECSA ARREGUIN DO K 487.1 INFLUENZA B 06/27/2012 386.11 VERTIGO- BENIGN PAROXYSMAL POSITIONAL 06/27/2012 386.11 VERTIGO- BENIGN PAROXYSMAL POSITIONAL 06/27/2012 386.11 VERTIGO- BENIGN PAROXYSMAL POSITIONAL 06/27/2012 386.11 VERTIGO- BENIGN PAROXYSMAL POSITIONAL 06/27/2012 ARREGUIN DO, FRANCESCA K 386.11 VERTIGO- BENIGN PAROXYSMAL POSITIONAL 06/27/2012 ARREGUIN DO, FRANCESCA K 386.11 VERTIGO- BENIGN PAROXYSMAL POSITIONAL 06/27/2012 ARREGUIN DO, FRANCESCA K 386.11 VERTIGO- BENIGN PAROXYSMAL POSITIONAL 06/27/2012 ARREGUIN DO, FRANCESCA K 386.11 VERTIGO- BENIGN PAROXYSMAL POSITIONAL 06/27/2012 KIN ATKINS APRN 386.11 VERTIGO- BENIGN PAROXYSMAL POSITIONAL 06/27/2012 ARREGUIN DO, FRANCESCA K 386.11 VERTIGO- BENIGN PAROXYSMAL POSITIONAL 06/27/2012 ARREGUIN DO, FRANCESCA K 386.11 VERTIGO- BENIGN PAROXYSMAL POSITIONAL 06/27/2012 ARREGUIN DO, FRANCESCA K 386.11 VERTIGO- BENIGN PAROXYSMAL POSITIONAL 08/16/2012 729.5 PAIN IN LIMB 08/16/2012 ARREGUIN DO, FRANCESCA K 729.5 PAIN IN LIMB 08/16/2012 ARREGUIN DO, FRANCESCA K 729.5 PAIN IN LIMB 08/16/2012 ARREGUIN DO, FRANCESCA K 729.5 PAIN IN LIMB 08/16/2012 ARREGUIN DO, FRANCESCA K 729.5 PAIN IN LIMB 08/16/2012 IKN ATKINS APRN 729.5 PAIN IN LIMB 08/16/2012 ARREGUIN DO, FRANCESCA K 729.5 PAIN IN LIMB 08/16/2012 ARREGUIN DO, FRANCESCA K 729.5 PAIN IN LIMB 08/16/2012 ARREGUIN DO, FRANCESCA K 729.5 PAIN IN LIMB 11/21/2012 ARREGUIN DO, FRANCESCA K 719.43 PAIN IN JOINT INVOLVING FOREARM 11/21/2012 ARREGUIN DO, FRANCESCA K 719.46 PAIN IN JOINT INVOLVING LOWER LEG 11/21/2012 ARREGUIN DO, FRANCESCA K 719.43 PAIN IN JOINT INVOLVING FOREARM 11/21/2012 ARREGUIN DO, FRANCESCA K 719.46 PAIN IN JOINT INVOLVING LOWER LEG 11/21/2012 ARREGUIN DO, FRANCESCA K 719.43 PAIN IN JOINT INVOLVING FOREARM 11/21/2012 ARREGUIN DO, FRANCESCA K 719.46 PAIN IN JOINT INVOLVING LOWER LEG 11/21/2012 ARREGUIN DO, FRANCESCA K 719.43 PAIN IN JOINT INVOLVING FOREARM 11/21/2012 ARREGUIN DO, FRANCESCA K 719.46 PAIN IN JOINT INVOLVING LOWER LEG 11/21/2012 [employer], KIN E 719.43 PAIN IN JOINT INVOLVING FOREARM 11/21/2012 [employer], KIN E 719.46 PAIN IN JOINT INVOLVING LOWER LEG 11/21/2012 ARREGUIN DO, FRANCESCA K 719.43 PAIN IN JOINT INVOLVING FOREARM 11/21/2012 ARREGUIN DO, FRANCESCA K 719.46 PAIN IN JOINT INVOLVING LOWER LEG 11/21/2012 ARREGUIN DO, FRANCESCA K 719.43 PAIN IN JOINT INVOLVING FOREARM 11/21/2012 ARREGUIN DO, FRANCESCA K 719.46 PAIN IN JOINT INVOLVING LOWER LEG 11/21/2012 ARREGUIN DO, FRANCESCA K 719.43 PAIN IN JOINT INVOLVING FOREARM 11/21/2012 ARREGUIN DO, FRANCESCA K 719.46 PAIN IN JOINT INVOLVING LOWER LEG 01/08/2013 ARREGUIN DO, FRANCESCA K 461.9 SINUSITIS ACUTE 01/08/2013 ARREGUIN DO, FARNCESCA K 462 PHARYNGITIS ACUTE 01/08/2013 ARREGUIN DO, FRANCESCA K 461.9 SINUSITIS ACUTE 01/08/2013 ARREGUIN DO, FRANCESCA K 462 PHARYNGITIS ACUTE 01/08/2013 ARREGUIN DO, FRANCESCA K 461.9 SINUSITIS ACUTE 01/08/2013 ARREGUIN DO, FRANCESCA K 462 PHARYNGITIS ACUTE 01/08/2013 [employer], KNI E 461.9 SINUSITIS ACUTE 01/08/2013 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, 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 462 PHARYNGITIS ACUTE 01/08/2013 ARREGUIN DO, FRANCESCA K 461.9 SINUSITIS ACUTE 01/08/2013 ARREGUIN DO, FRANCESCA K 462 PHARYNGITIS ACUTE 01/08/2013 ARREGUIN DO, FRANCESCA K 461.9 SINUSITIS ACUTE 01/08/2013 ARREGUIN DO, FRANCESCA K 462 PHARYNGITIS ACUTE 01/08/2013 ARREGUIN DO, FRANCESCA K 461.9 SINUSITIS ACUTE 01/08/2013 ARREGUIN DO, FRANCESCA K 462 PHARYNGITIS ACUTE 01/29/2013 ARREGUIN DO, FRANCESCA K 616.10 VAGINITIS AND VULVOVAGINITIS UNSPECIFIED 01/29/2013 ARREGUIN DO, FRANCESCA K 780.2 SYNCOPE AND COLLAPSE 01/29/2013 ARREGUIN DO, FRANCESCA K 616.10 VAGINITIS AND VULVOVAGINITIS UNSPECIFIED 01/29/2013 ARREGUIN DO, FRANCESCA K 780.2 SYNCOPE AND COLLAPSE 01/29/2013 KIN ATKINS APRN 616.10 VAGINITIS AND VULVOVAGINITIS UNSPECIFIED 01/29/2013 KIN ATKINS APRN E 780.2 SYNCOPE AND COLLAPSE 01/29/2013 ARREGUIN DO, FRANCESCA K 616.10 VAGINITIS AND VULVOVAGINITIS UNSPECIFIED 01/29/2013 ARREGUIN DO, FRANCESCA K 780.2 SYNCOPE AND COLLAPSE 01/29/2013 ARREGUIN DO, FRANCESCA K 616.10 VAGINITIS AND VULVOVAGINITIS UNSPECIFIED 01/29/2013 ARREGUIN DO, FRANCESCA K 780.2 SYNCOPE AND COLLAPSE 01/29/2013 ARREGUIN DO, FRANCESCA K 616.10 VAGINITIS AND VULVOVAGINITIS UNSPECIFIED 01/29/2013 ARREGUIN DO, FRANCESCA K 780.2 SYNCOPE AND COLLAPSE 02/08/2013 ARREGUIN DO, FRANCESCA K 008.8 INTESTINAL INFECTION DUE TO OTHER ORGANISM NOT ELSEWHERE CLASSIFIED 02/08/2013 KIN ATKINS APRN E 008.8 INTESTINAL INFECTION DUE TO OTHER ORGANISM NOT ELSEWHERE CLASSIFIED 02/08/2013 ARREGUIN DO, FRANCESCA K 008.8 INTESTINAL INFECTION DUE TO OTHER ORGANISM NOT ELSEWHERE CLASSIFIED 02/08/2013 ARREGUIN DO, FRANCESCA K 008.8 INTESTINAL INFECTION DUE TO OTHER ORGANISM NOT ELSEWHERE CLASSIFIED 02/08/2013 ARREGUIN DO, FRANCESCA K 008.8 INTESTINAL INFECTION DUE TO OTHER ORGANISM NOT ELSEWHERE CLASSIFIED 02/26/2013 KIN ATKINS APRN 466.0 ACUTE BRONCHITIS 02/26/2013 ARREUGIN DO, FRANCESCA K 466.0 ACUTE BRONCHITIS 02/26/2013 ARREGUIN DO, FRANCESCA K 466.0 ACUTE BRONCHITIS 02/26/2013 ARREGUIN DO, FRANCESCA K 466.0 ACUTE BRONCHITIS 12/27/2013 ARREGUIN DO, FRANCESCA K 133.0 SCABIES 12/27/2013 ARREGUIN DO, FRANCESCA K 133.0 SCABIES 01/29/2015 Ot 575.10 01/29/2015 Ot 575.9 01/29/2015 KIN ATKINS APRN Ot 780.2 11/06/2016 Ot 575.9 DIS OF GALLBLADDER NOS 11/06/2016 KIN ATKINS APRN Ot 780.2 SYNCOPE AND COLLAPSE 11/06/2016 ALESIA PIMENTEL, ELIZABETH Mak ([facility]) Ot Z02.71 ENCOUNTER FOR DISABILITY DETERMINATION 11/09/2016 VALENTIN JORDAN MD Ot J11.1 FLU DUE TO UNIDENTIFIED INFLUENZA VIRUS 11/09/2016 VALENTIN JORDAN MD Ot Z90.89 ACQUIRED ABSENCE OF OTHER ORGANS 11/09/2016 VALENTIN JORDAN MD Ot Z98.51 TUBAL LIGATION STATUS Procedures Code [place] [address] A1C (IN-HOUSE) 17215 INFLUENZA A & B (IN-HOUSE) 04/04/2012 38019 ROUTINE VENIPUNCTURE 06/27/2012 96832 MICRO ALBUMIN-IN HOUSE 06/27/2012 06078 CMP 06/27/2012 65461 LIPID PANEL 06/27 8757973 GFR CALC (RESULT ONLY) 06/27/2012 37021 CBC 06/27/2012 25701 A1C (RML) 2012 THYANA THYROID ANALYZER 06/28/2012 10527 TSH 06/30/2012 ORTHOPCHANDA VALENTINE 11/21/2012 44843 INFLUENZA A & B (IN-HOUSE) 01/08/2013 53252 STREP A (IN-HOUSE) 01/08/2013 33132 MRI BRAIN W/O CONTRAST 01/29/2013 41354 UA LONG DIP 01/29 82344 NEBULIZER TREATMENT 03/04/2014 74460 OXIMETRY 2014 J7613 ALBUTEROL UNIT DOSE FORM INHALED 03/04/2014 Results Encounters ACCT No. Visit Date/Time Discharge Status Pt. Type Provider Facility Loc./Unit Complaint [id number] 03/04/2014 11:06:00 03/04/2014 23: 59:59 CLS Outpatient FRANCESCA ARREGUIN DO [id number] 12/27/2013 10:37:00 12/27/2013 23: 59:59 CLS Outpatient FRANCESCA ARREGUIN DO [id number] 05/29/2013 09:53:00 05/29/2013 23: 59:59 CLS Outpatient FRANCESCA ARREGUIN DO [id number] 02/26/2013 14:25:00 02/26/2013 23: 59:59 CLS Outpatient KIN ATKINS APRN [id number] 02/08/2013 14:44:00 02/08/2013 23: 59:59 CLS Outpatient FRANCESCA ARREGUIN DO [id number] 01/29/2013 14:19:00 01/29/2013 23: 59:59 CLS Outpatient FRANCESCA ARREGUIN DO [id number] 01/08/2013 14:31:00 01/08/2013 23: 59:59 CLS Outpatient FRANCESCA ARREGUIN DO [id number] 11/21/2012 09:24:00 11/21/2012 23: 59:59 CLS Outpatient FRANCESCA ARREGUIN DO [id number] 04/06/2012 09:04:00 04/06/2012 23: 59:59 CLS Outpatient [id number] 04/04/2012 11:20:00 04/04/2012 23: 59:59 CLS Outpatient [id number] 12/31/2011 13:29:00 12/31/2011 23: 59:59 CLS Outpatient NEFTALY ISSA MD [id number] 08/16/2012 09:50:00 Document Registration [id number] 07/04/2012 13:45:00 Document Registration [id number] 06/27/2012 08:42:00 Document Registration [id number] 06/27/2012 08:42:00 Document Registration [id number] 11/06/2016 19:20:00 2016 20:33:00 DIS Outpatient NIKKI PIMENTEL, VALENTIN Tucker [facility] ER POSSIBLY DEHYDRATED [id number] 01/29/2015 11:52:00 2014 23:59:59 CLS Outpatient ALESIA PIMENTEL, ELIZABETH Mak (DDU) [facility] RAD DDU [id number] 02/06/2013 08:58:00 2012 23:59:59 CLS Outpatient KIN ATKINS APRN [facility] RAD LOSS OF CONSCIOUSNESS [id number] 06/30/2011 17:28:00 Document Registration [id number] 06/07/2011 09:09:00 Document Registration [id number] 05/05/2011 09:05:00 Document Registration
[2016-11-15] MEDS ORDERED: NS IV 1000 ML 1,000 ML IV ONE ×2 (19:40→20:34)
[2016-11-15 20:02] LABS: BASOPHILS # (AUTO) 0.1 10^3/uL (0.0-0.1); BASOPHILS % (AUTO) 1 % (0-10); EOSINOPHILS # (AUTO) 0.3 10^3/uL (0.0-0.3); EOSINOPHILS % (AUTO) 2 % (0-10); LYMPHOCYTES # (AUTO) 4.3 X 10^3 (1.0-4.0); LYMPHOCYTES % (AUTO) 30 % (12-44); MEAN CORPUSCULAR HEMOGLOBIN 21 PG (25-34); MEAN CORPUSCULAR HGB CONC 30 G/DL (32-36); MEAN CORPUSCULAR VOLUME 68 FL (80-99); MEAN PLATELET VOLUME 9.2 FL (7.4-10.4); MONOCYTES # (AUTO) 0.8 X 10^3 (0.0-1.0); MONOCYTES % (AUTO) 5 % (0-12); NEUTROPHILS # (AUTO) 8.9 X 10^3 (1.8-7.8); NEUTROPHILS % (AUTO) 62 % (42-75); PLATELET COUNT 414 10^3/uL (130-400); RED BLOOD COUNT 5.58 10^6/uL (4.35-5.85); RED CELL DISTRIBUTION WIDTH 17.5 % (10.0-14.5); WHITE BLOOD COUNT 14.4 10^3/uL (4.3-11.0)
--- NOTE | 2016-11-15 20:14 | ED Cough/URI ---
General Chief Complaint: Cough/Cold/Flu Symptoms Stated Complaint: DIZZINESS/POSS DEHYDRATION Nursing Triage Note: PT STATES HAS BEEN SICK W INFLUENZA SINCE 11/05/16, PT STATES HAS PERSISTANT COUGH,DIZZINESS AT TIMES, DIARRHEA AND HAS NOT EATEN FOR APPROX 4 DAYS. PT STATES INC OF URINE WHEN COUGHS. PT WEARING MASK AT THIS X. Source: patient Exam Limitations: no limitations History of Present Illness Time seen by provider: 20:14 Allergies and Home Medications Allergies Coded Allergies: No Known Allergies (Unverified Allergy, Mild, 07/17/08) Home Medications Guaifenesin 100 Mg/5 Ml Liquid, 100 MG PO Q8H PRN for COUGH, #100 Ref 0 Prescribed by: VALENTIN JORDAN on 11/06/162002 Ondansetron 4 Mg Tab.rapdis, 4 MG PO Q4H PRN for NAUSEA/VOMITING-1ST LINE, #10 Ref 0 Prescribed by: VALENTIN JORDAN on 11/06/162002 Past Vpqngqt-Hqhoei-Yshuih Hx Patient Social History Alcohol Use: Denies Use Recreational Drug Use: No Smoking Status: Never a Smoker Recent Foreign Travel: No Contact w/Someone Who Travel: No Recent Infectious Disease Expo: No Recent Hopitalizations: No Physical Abuse: No Sexual Abuse: No Surgeries History of Surgeries: Yes (HERNIA) Surgeries: Cardiac, Tonsillectomy, Tubal Ligation Respiratory History of Respiratory Disorde: No Cardiovascular History of Cardiac Disorders: No Neurological History of Neurological Disord: No Genitourinary History of Genitourinary Disor: No Gastrointestinal History of Gastrointestinal Di: No Musculoskeletal History of Musculoskeletal Dis: No Endocrine History of Endocrine Disorders: No HEENT History of HEENT Disorders: No Cancer History of Cancer: No Psychosocial History of Psychiatric Problem: No Suicide Risk Score: 0 Integumentary History of Skin or Integumenta: No Blood Transfusions History of Blood Disorders: No Physical Exam Vital Signs Vital Sign - Last 12Hours 11/15/16 19:35 Temp 97.5 Pulse 107 Resp 18 B/P (MAP) 143/92 Pulse Ox 99 Capillary Refill : Less Than 3 Seconds Focused Exam Evaluation Lactate Level Laboratory Tests 11/15/16 20:35: Lactic Acid Level 1.08 Lactic Acid Level Laboratory Tests Test 11/15/16 20:35 Lactic Acid Level 1.08 MMOL/L (0.50-2.00) Progress/Results/Core Measures Results/Orders Lab Results Laboratory Tests Test 11/15/16 19:54 11/15/16 20:35 11/15/16 22:10 Range/Units White Blood Count 14.4 H 4.3-11.0 10^3/uL Red Blood Count 5.58 4.35-5.85 10^6/uL Hemoglobin 11.5 11.5-16.0 G/DL Hematocrit 38 35-52 % Mean Corpuscular Volume 68 L 80-99 FL Mean Corpuscular Hemoglobin 21 L 25-34 PG Mean Corpuscular Hemoglobin Concent 30 L 32-36 G/DL Red Cell Distribution Width 17.5 H 10.0-14.5 % Platelet Count 414 H 130-400 10^3/uL Mean Platelet Volume 9.2 7.4-10.4 FL Neutrophils (%) (Auto) 62 42-75 % Lymphocytes (%) (Auto) 30 12-44 % Monocytes (%) (Auto) 5 0-12 % Eosinophils (%) (Auto) 2 0-10 % Basophils (%) (Auto) 1 0-10 % Neutrophils # (Auto) 8.9 H 1.8-7.8 X 10^3 Lymphocytes # (Auto) 4.3 H 1.0-4.0 X 10^3 Monocytes # (Auto) 0.8 0.0-1.0 X 10^3 Eosinophils # (Auto) 0.3 0.0-0.3 10^3/uL Basophils # (Auto) 0.1 0.0-0.1 10^3/uL Neutrophils % (Manual) 61 % Lymphocytes % (Manual) 34 % Monocytes % (Manual) 2 % Eosinophils % (Manual) 3 % Basophils % (Manual) 0 % Band Neutrophils 0 % Hypochromasia SLIGHT Microcytosis SLIGHT Spherocytes SLIGHT Elliptocytes SLIGHT Sodium Level 139 135-145 MMOL/L Potassium Level 3.7 3.6-5.0 MMOL/L Chloride Level 103 98-107 MMOL/L Carbon Dioxide Level 25 21-32 MMOL/L Anion Gap 11 5-14 MMOL/L Blood Urea Nitrogen 5 L 7-18 MG/DL Creatinine 0.90 0.60-1.30 MG/DL Estimat Glomerular Filtration Rate > 60 BUN/Creatinine Ratio 6 Glucose Level 96 70-105 MG/DL Calcium Level 9.5 8.5-10.1 MG/DL Total Bilirubin 0.8 0.1-1.0 MG/DL Aspartate Amino Transf (AST/SGOT) 31 5-34 U/L Alanine Aminotransferase (ALT/SGPT) 28 0-55 U/L Alkaline Phosphatase 71 40-136 U/L Troponin I < 0.30 <0.30 NG/ML Total Protein 8.3 H 6.4-8.2 GM/DL Albumin 4.3 3.2-4.5 GM/DL TSH Yancey Testing 1.28 0.35-4.94 UIU/ML Serum Alcohol < 10 <10 MG/DL Lactic Acid Level 1.08 0.50-2.00 MMOL/L Urine Color BROWN H Urine Clarity VERY CLOUDY H Urine pH 5 5-9 Urine Specific [place] 1.025 H 1.016-1.022 Urine Protein 1+ H NEGATIVE Urine Glucose (UA) NEGATIVE NEGATIVE Urine Ketones 1+ H NEGATIVE Urine Nitrite NEGATIVE NEGATIVE Urine Bilirubin NEGATIVE NEGATIVE Urine Urobilinogen NORMAL NORMAL MG/DL Urine Leukocyte Esterase 2+ H NEGATIVE Urine RBC (Auto) NEGATIVE NEGATIVE Urine RBC NONE /HPF Urine WBC 5-10 H /HPF Urine Squamous Epithelial Cells 10-25 H /HPF Urine Crystals PRESENT H /LPF Urine Amorphous Sediment LARGE EMMIE URATES H /LPF Urine Bacteria FEW H /HPF Urine Casts NONE /LPF Urine Mucus NEGATIVE /LPF Urine Culture Indicated YES My Orders Orders - JESS CABRALES Saline Lock/Iv-Start (11/15/16 19:40) Alcohol (11/15/16 19:40) Cbc With Automated Diff (11/15/16 19:40) Comprehensive Metabolic Panel (11/15/16 19:40) Drug Screen Stat (Urine) (11/15/16 19:40) Thyroid Analyzer (11/15/16 19:40) Troponin I (11/15/16 19:40) Ua Culture If Indicated (11/15/16 19:40) Ns Iv 1000 Ml (Sodium Chloride 0.9%) (11/15/16 19:40) Manual Differential (11/15/16 19:54) Chest Pa/Lat (2 View) (11/15/16 20:15) Lactic Acid Analyzer (11/15/16 20:15) Blood Culture (11/15/16 20:15) Acetaminophen Tablet (Tylenol Tablet) (11/15/16 20:34) Ceftriaxone Injection (Rocephin Injectio (11/15/16 20:45) Ns Iv 1000 Ml (Sodium Chloride 0.9%) (11/15/16 20:34) Ondansetron Injection (Zofran Injectio (11/15/16 20:45) Benzonatate Capsule (Tessalon Perles) (11/15/16 20:45) Urine Culture (11/15/16 22:10) Medications Given in ED Current Medications Medications Dose Ordered Sig/Adrianne Route Start Time Stop Time Status Last Admin Dose Admin Benzonatate 200 mg ONCE ONCE PO 11/15/16 20:45 11/15/16 20:46 DC 11/15/16 20:55 200 MG Ceftriaxone Sodium 1000 mg/ Sodium Chloride 50 ml @ 100 mls/hr ONCE ONCE IV 11/15/16 20:45 11/15/16 21:14 DC 11/15/16 20:54 100 MLS/HR Ondansetron HCl 4 mg ONCE ONCE IVP 11/15/16 20:45 11/15/16 20:46 DC 11/15/16 20:54 4 MG Sodium Chloride 1,000 ml @ 0 mls/hr Q0M ONCE IV 11/15/16 19:40 11/15/16 19:41 DC 11/15/16 19:54 1,000 MLS/HR Sodium Chloride 1,000 ml @ 0 mls/hr Q0M ONCE IV 11/15/16 20:34 11/15/16 20:37 DC 11/15/16 20:55 1,000 MLS/HR Vital Signs/I&O Vital Sign - Last 12Hours 11/15/16 19:35 Temp 97.5 Pulse 107 Resp 18 B/P (MAP) 143/92 Pulse Ox 99 Intake and Output 11/16/16 00:00 Intake Total 2050 ml Balance 2050 ml Blood Pressure Mean: 109 Departure Impression Impression: Primary Impression: Acute bronchitis Additional Impression: Volume depletion Disposition: 01 HOME, SELF-CARE Condition: Improved Departure-Patient Inst. Decision time for Depature: 22:37 Referrals: [facility] (PCP/Family) Primary Care Physician Patient Instructions: Acute Bronchitis, Adult (DC), Dehydration, Adult (DC) Add. Discharge Instructions: All discharge instructions reviewed with patient and/or family. Voiced understanding. Medications as instructed. Drink plenty of fluids. Tylenol extra strength [id number] as directed for pain or fever. Ibuprofen 800 mg by mouth every 8 hours as a for pain or fever. Saline nasal spray and Afrin nasal spray [id number] as needed for nasal congestion. Follow-up with your family practitioner for recheck as an outpatient this week. Return to the emergency department for worsened symptoms or any other concerns. Scripts Ondansetron (Ondansetron Odt) 8 Mg Tab.rapdis 8 MG PO Q6H Y for NAUSEA/VOMITING-1ST LINE, #10 TAB 0 Refills Prov: JESS CABRALES 11/15/16 Cefdinir (Cefdinir) 300 Mg Capsule 300 MG PO BID, #14 CAP 0 Refills Prov: JESS CABRALES 11/15/16 Benzonatate (Tessalon Perle) 100 Mg Capsule 100-200 MG PO TID Y for COUGH, #30 CAP 1 Refill Prov: JESS CABRALES 11/15/16 Albuterol Sulfate (Proventil Hfa) 6.7 Gm Hfa.aer.ad 2 PUFF IH Q4H Y for SHORTNESS OF BREATH, #1 EACH 0 Refills Prov: JESS CABRALES 11/15/16 Prednisone (Prednisone) 20 Mg Tab 40 MG PO DAILY, #10 TAB 0 Refills Prov: JESS CABRALES 11/15/16 Work/School Note: Work Release Form Date Seen in the Emergency Department: Nov 15, 2016 Return to Work: Nov 17, 2016 Restrictions: Return-No Fever (24hrs) JESS CABRALES Nov 15, 2016 20:14
[2016-11-15 20:21] LABS: BAND NEUTROPHILS 0 %; BASOPHILS % (MANUAL) 0 %; EOSINOPHILS % (MANUAL) 3 %; HYPOCHROMASIA SLIGHT; LYMPHOCYTES % (MANUAL) 34 %; MICROCYTOSIS SLIGHT; NEUTROPHILS % (MANUAL) 61 %; SPHEROCYTES SLIGHT
[2016-11-15 20:27] LABS: ALANINE AMINOTRANSFERASE 28 U/L (0-55); ALBUMIN 4.3 GM/DL (3.2-4.5); ALCOHOL < 10 MG/DL (<10); ANION GAP 11 MMOL/L (5-14); ASPARTATE AMINO TRANSFERASE 31 U/L (5-34); BILIRUBIN,TOTAL 0.8 MG/DL (0.1-1.0); BLOOD UREA NITROGEN 5 MG/DL (7-18); BUN/CREATININE RATIO 6; CALCIUM 9.5 MG/DL (8.5-10.1); CARBON DIOXIDE 25 MMOL/L (21-32); CHLORIDE 103 MMOL/L (98-107); GFR ESTIMATED > 60; GLUCOSE 96 MG/DL (70-105); POTASSIUM 3.7 MMOL/L (3.6-5.0); SODIUM 139 MMOL/L (135-145); TOTAL PROTEIN 8.3 GM/DL (6.4-8.2)
[2016-11-15] MEDS ORDERED: ACETAMINOPHEN 500 MG TAB (TYLENOL) PO STA (20:34)
[2016-11-15 20:41] LABS: TROPONIN I < 0.30 NG/ML (<0.30)
[2016-11-15] MEDS ORDERED: BENZONATATE 100 MG (TESSALON) CAPSULE PO ONE (20:45)
[2016-11-15] MEDS ORDERED: cefTRIAXone INJECTION 1,000 MG in NS (IVPB) 50 ML IV ONE (20:45)
[2016-11-15] MEDS ORDERED: ONDANSETRON 4 MG/2 ML (SDV) Z0FRAN IVP ONE (20:45)
--- NOTE | 2016-11-15 21:04 | Diagnostic Imaging Report ---
EXAMINATION: CHEST (PA AND LATERAL) CLINICAL INDICATION: 46-year-old female, cough, chest congestion, shortness of breath COMPARISON: November 06, 2016. FINDINGS: Heart size and mediastinal contours are unchanged. There is no identified pneumothorax. There is no pleural effusion. There is no identified focal airspace consolidation. IMPRESSION: 1. No identified acute cardiopulmonary abnormality. Dictated by: Dictated on workstation # [id number]
[2016-11-15 22:18] LABS: BILIRUBIN,URINE NEGATIVE (NEGATIVE); KETONES,URINE 1+ (NEGATIVE); LEUKOCYTE ESTERASE ,URINE 2+ (NEGATIVE); NITRITE,URINE NEGATIVE (NEGATIVE); PH,URINE 5 (5-9); PROTEIN,URINE 1+ (NEGATIVE); UROBILINOGEN,URINE NORMAL (NORMAL)
[2016-11-15] MEDS ORDERED: BENZ-13 PO (22:42)
[2016-11-15] MEDS ORDERED: ONDA8TAB13 PO (22:42)
[2016-11-15] MEDS ORDERED: RT-ALBUINH IH (22:42)
[2016-11-15] MEDS ORDERED: CEFD300C3 PO (22:42)
[2016-11-15] MEDS ORDERED: PRD20T PO (22:42)
[2016-11-15] MEDS ORDERED: RX-ALBUTEROL INHALER (PROAIR) 8 GM IH ONE (22:47)
[2016-11-15 22:59] VITALS: BP 142/92
== END 2016-11-15 22:59 | disposition home or self-care (01) ==
LOC: EDUNIT# 19:20 → ER 19:21
DX: J20.9 Acute bronchitis, unspecified (principal); E86.9 Volume depletion, unspecified; Z98.51 Tubal ligation status; Z90.89 Acquired absence of other organs
CPT/HCPCS: 36415; 71020; 80053; 80306; 80320; 81000; 83605; 84443; 84484; 85007; 85027; 87040; 87088; 96361; 96365; 96375